=== PATIENT | female | born 1980 ===

== ENCOUNTER 2017-08-16 14:29 | Emergency (ER) | payer OTHER ==
[~2017-08-16] VITALS: Ht 170.2 cm; Wt 86.4 kg
[2017-08-16 16:11] VITALS: BP 126/97
== END 2017-08-16 16:12 | disposition home or self-care (01) ==
LOC: ER 14:31
DX: S20.02XA Contusion of left breast, initial encounter (principal); S40.022A Contusion of left upper arm, initial encounter; S00.83XA Contusion of other part of head, initial encounter; S60.011A Contusion of right thumb without damage to nail, initial encounter; Y08.89XA Assault by other specified means, initial encounter; Y93.89 Activity, other specified; Y92.89 Other specified places as the place of occurrence of the external cause; Y99.8 Other external cause status
CPT/HCPCS: 71045; 99284